=== PATIENT | female | born 2000 | race Caucasian/White ===

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

== ENCOUNTER 2020-10-25 17:17 | Inpatient (IN) | payer BC ==
[2020-10-25] MEDS ORDERED: Ondansetron 4 MG/2 ML SDV IVPUSH PRN ×2 (17:48→20:53)
--- NOTE | 2020-10-25 18:31 | PCM.LDHP ---
L&D History of Present Illness - General Date of Service: 10/25/20 Admit Problem/Dx: Patient Status Order with Admit Dx/Problem 10/25/20 17:20 Patient Status [ADT] Routine Admission Diagnosis/Problem Admission Diagnosis/Problem 10/25/20 18:24 presenting to L&D with reports of regular uterine contractions starting at 0700 and continuing throughout the day, currently 2-3 minutes apart; SVE 2cm /90%/-2, soft, posterior per nurse report; 39 4/7 weeks (TATI: 10/28/20) by 1st trimester ultrasound; A+, rubella immune, GBS negative Source of Information: Patient History Limitations: Reports: No Limitations - Related Data Allergies/Adverse Reactions: Allergies Allergy/AdvReac Type Severity Reaction Status Date / Time No Known Allergies Allergy Verified 07/07/18 17:51 Home Medications: Home Meds Pnv No.95/Ferrous Fum/Folic AC [ Vitamins Tablet] 1 PO DAILY 10/25/20 [History] Past Medical History - Past Health History Medical/Surgical History: Denies 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: - Infectious Disease History Infectious Disease History: Reports: None Social & Family History - Family History Family Medical History: No Pertinent Family History - Tobacco Use Tobacco Use Status *Q: Former Tobacco User Used Tobacco, but Quit: Yes Month/Year Tobacco Last Used: 12/19 - Caffeine Use Caffeine Use: Reports: Coffee, Soda - Recreational Drug Use Recreational Drug Use: No H&P Review of Systems - Review of Systems: Review Of Systems: See Below General: Reports: No Symptoms HEENT: Reports: No Symptoms Pulmonary: Reports: No Symptoms Cardiovascular: Reports: No Symptoms Gastrointestinal: Reports: No Symptoms Genitourinary: Reports: No Symptoms Musculoskeletal: Reports: No Symptoms Skin: Reports: No Symptoms Psychiatric: Reports: No Symptoms Neurological: Reports: No Symptoms Hematologic/Lymphatic: Reports: No Symptoms Immunologic: Reports: No Symptoms L&D Exam - Exam Exam: See Below - Vital Signs Weight: 205 lb - OB Specific Contraction Intensity: Moderate Movement: Active Heart Tones: Present Heart Rate (FHR) Variability: Moderate (6-25 bmp) Presentation: Vertex - Mane Score Mane Score Cervix Position: Posterior Mane Score Consistency: Soft Mane Score Effacement: >80% Mane Score Dilation: 1-2 cm Mane Score Infant's Station: -2 Mane Score Total: 7 - Exam General: Alert, Oriented, Cooperative Lungs: Normal Respiratory Effort Cardiovascular: Regular Rate, Regular Rhythm GI/Abdominal Exam: Soft, Non-Tender Rectal Exam: Deferred Genitourinary: Deferred Back Exam: Normal Inspection, Full Range of Motion Extremities: Normal Inspection, Normal Range of Motion, Non-Tender, Normal Capillary Refill Skin: Warm, Dry, Intact Neurological: Strength Equal Bilateral, Normal Gait, Normal Speech, Normal Tone, Sensation Intact Psychiatric: Alert, Normal Affect, Normal Mood - Problem List (1) Supervision of normal IUP (intrauterine ) in primigravida SNOMED Code(s): 83633204, 172373025, 314072306, 140952057 ICD Code: Z34.00 - ENCNTR FOR SUPRVSN OF NORMAL FIRST , UNSP TRIMESTER Status: Acute Priority: High Current Visit: Yes Qualifiers: Trimester: third trimester Qualified Code(s): Z34.03 - Encounter for supervision of normal first , third trimester Problem List Initiated/Reviewed/Updated: Yes Orders Last 24hrs: Active Orders 24 hr Category Date Time Status Patient Status [ADT] Routine ADT 10/25/20 17:20 Active Non Stress Test [RC] PER UNIT ROUTINE Care 10/25/20 17:20 Active Up ad Olga [RC] ASDIRECTED Care 10/25/20 17:48 Active Vaginal Exam [RC] Click to Edit Care 10/25/20 17:48 Active Vital Signs [RC] PER UNIT ROUTINE Care 10/25/20 17:48 Active CORONAVIRUS COVID-19 KACIE [MOLEC] Stat Lab 10/25/20 18:12 Ordered UA W/O MICROSCOPIC [URIN] Urgent Lab 10/25/20 17:48 Ordered Ondansetron [Zofran] Med 10/25/20 17:48 Active 4 mg IVPUSH Q4H PRN Resuscitation Status Routine Resus Stat 10/25/20 17:48 Ordered Medication Orders Ondansetron HCl (Zofran) 4 mg IVPUSH Q4H PRN PRN Reason: Nausea/Vomiting Assessment/Plan Comment:: Admit A: presenting to L&D with reports of regular uterine contractions starting at 0700 and continuing throughout the day, currently 2-3 minutes apart; SVE 2cm/90%/-2, soft, posterior per nurse report; 39 4/7 weeks (TATI: 10/28/20) by 1st trimester ultrasound; A+, rubella immune, GBS negative P: Anticipate ; epidural PRN; Dr. Davis updated
[2020-10-25] MEDS ORDERED: Water For Irrigation,Sterile 1,000 ML Container IRR PRN (20:50)
[2020-10-25] MEDS ORDERED: Misoprostol 200 MCG Tab PO PRN (20:50)
[2020-10-25] MEDS ORDERED: Methylergonovine 0.2 MG/1 ML Amp IM PRN (20:50)
[2020-10-25] MEDS ORDERED: Tranexamic Acid 1,000 MG in Sodium Chloride 0.9% 100 ML IV PRN (20:50)
[2020-10-25] MEDS ORDERED: Carboprost Tromethamine 250 MCG/1 ML Amp IM PRN (20:50)
[2020-10-25] MEDS ORDERED: Butorphanol 1 MG/ML SDV IVPUSH PRN (20:50)
[2020-10-25] MEDS: Lactated Ringers 1,000 ML IV SCH ×2 (20:50→21:51)
[2020-10-25] MEDS ORDERED: Nalbuphine 10 MG/1 ML Vial IVPUSH PRN (20:50)
[2020-10-25] MEDS ORDERED: Lidocaine 1% 50 ML MDV INJECT PRN (20:50)
[2020-10-25] MEDS ORDERED: Oxytocin/0.9 % Sodium Chloride 30 UNIT/500 ML BAG IV SCH (21:00)
--- NOTE | 2020-10-25 21:07 | PCM.PREANE ---
Preanesthetic Assessment - Procedure Proposed Procedure: Continuous Labor Epidural - Anesthesia/Transfusion/Family Hx Anesthesia History: Prior Anesthesia Without Reaction (Patient states she had "anesthesia for dental exam") Family History of Anesthesia Reaction: No Transfusion History: No Prior Transfusion(s) - Review of Systems General: No Symptoms Pulmonary: No Symptoms Cardiovascular: No Symptoms Gastrointestinal: No Symptoms Neurological: No Symptoms Other: Reports: None - Physical Assessment Height: 5 ft 9 in Weight: 92.986 kg ASA Class: 2 Mental Status: Alert & Oriented x3 Airway Class: Mallampati = 2 Dentition: Reports: Normal Dentition Thyro-Mental Finger Breadths: 3 Mouth Opening Finger Breadths: 3 ROM/Head Extension: Full Lungs: Clear to Auscultation, Normal Respiratory Effort Cardiovascular: Regular Rate, Regular Rhythm - Lab Values: Laboratory Last Values WBC 11.28 K/uL (4.0-11.0) H 10/25/20 18:45 RBC 4.02 M/uL (4.30-5.90) L 10/25/20 18:45 Hgb 12.2 g/dL (12.0-16.0) 10/25/20 18:45 Hct 35.8 % (36.0-46.0) L 10/25/20 18:45 MCV 89.1 fL (80.0-98.0) 10/25/20 18:45 MCH 30.3 pg (27.0-32.0) 10/25/20 18:45 MCHC 34.1 g/dL (31.0-37.0) 10/25/20 18:45 RDW Std Deviation 44.3 fl (28.0-62.0) 10/25/20 18:45 RDW Coeff of Jose Alfredo 14 % (11.0-15.0) 10/25/20 18:45 Plt Count 177 K/uL (150-400) 10/25/20 18:45 MPV 11.80 fL (7.40-12.00) 10/25/20 18:45 Nucleated RBC % 0.0 /100WBC 10/25/20 18:45 Nucleated RBCs # 0 K/uL 10/25/20 18:45 SARS-CoV-2 RNA (KACIE) NEGATIVE (NEGATIVE) 10/25/20 18:45 - Allergies Allergies/Adverse Reactions: Allergies Allergy/AdvReac Type Severity Reaction Status Date / Time No Known Allergies Allergy Verified 07/07/18 17:51 - Anesthesia Plan Free Text/Narrative:: Continuous Labor Epidural - Acknowledgements Anesthesia Type Planned: Epidural Pt an Appropriate Candidate for the Planned Anesthesia: Yes Alternatives and Risks of Anesthesia Discussed w Pt/Guardian: Yes Pt/Guardian Understands and Agrees with Anesthesia Plan: Yes PreAnesthesia Questionnaire - Past Health History Medical/Surgical History: Denies Medical/Surgical History HEENT History: Reports: None Cardiovascular History: Reports: None Respiratory History: Reports: None Gastrointestinal History: Reports: None Genitourinary History: Reports: None 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 LMP (Approximate): Musculoskeletal History: Reports: None Neurological History: Reports: None Psychiatric History: Reports: None Endocrine/Metabolic History: Reports: None Hematologic History: Reports: None Immunologic History: Reports: None Oncologic (Cancer) History: Reports: None Dermatologic History: Reports: None - Infectious Disease History Infectious Disease History: Reports: None - SUBSTANCE USE Tobacco Use Status *Q: Former Tobacco User Tobacco Use Within Last Twelve Months: Cigarettes (Quit December 2019) Recreational Drug Use History: No - HOME MEDS Home Medications: Home Meds Pnv No.95/Ferrous Fum/Folic AC [ Vitamins Tablet] 1 PO DAILY 10/25/20 [History] - CURRENT (IN HOUSE) MEDS Current Meds: Current Medications Butorphanol Tartrate (Stadol) 1 mg IVPUSH Q1H PRN PRN Reason: Pain Carboprost Tromethamine (Hemabate Ds) 250 mcg IM ASDIRECTED PRN PRN Reason: Post Hemorrhage Lactated Ringer's (Ringers, Lactated) 1,000 mls @ 150 mls/hr IV ASDIRECTED POLLO Oxytocin/Sodium Chloride (Oxytocin 30 Unit/500 Ml-Ns) 30 unit in 500 mls @ 999 mls/hr IV TITRATE POLLO Tranexamic Acid 1,000 mg/ (Sodium Chloride) 110 mls @ 660 mls/hr IV ONETIME PRN PRN Reason: Bleeding Lidocaine HCl (Xylocaine 1%) 50 ml INJECT ONETIME PRN PRN Reason: Laceration repair Methylergonovine Maleate (Methergine) 0.2 mg IM ASDIRECTED PRN PRN Reason: Post Hemorrhage Misoprostol (Cytotec) 200 mcg PO ONETIME PRN PRN Reason: Post Hemorrhage Nalbuphine HCl (Nubain) 10 mg IVPUSH Q1H PRN PRN Reason: Pain (severe 7-10) Ondansetron HCl (Zofran) 4 mg IVPUSH Q6H PRN PRN Reason: Nausea/Vomiting Sterile Water (Sterile Water For Irrigation) 1,000 ml IRR ASDIRECTED PRN PRN Reason: delivery Discontinued Medications Ondansetron HCl (Zofran) 4 mg IVPUSH Q4H PRN PRN Reason: Nausea/Vomiting
[2020-10-25] MEDS ORDERED: Ropivacaine HCl/PF 100 ML ONE (21:10)
[2020-10-25] MEDS ORDERED: fentaNYL 100 MCG/2 ML SDV ONE (21:10)
[2020-10-26] MEDS: Lactated Ringers 1,000 ML IV SCH (01:20)
[2020-10-26] MEDS ORDERED: Terbutaline 1 MG/ML SDV SUBCUT PRN (02:13)
[2020-10-26] MEDS ORDERED: Oxytocin/0.9 % Sodium Chloride 30 UNIT/500 ML BAG IV SCH (02:15)
[2020-10-26] MEDS ORDERED: fentaNYL 100 MCG/2 ML SDV ONE (03:28)
[2020-10-26] MEDS ORDERED: Ropivacaine HCl/PF 100 ML ONE (03:29)
[2020-10-26] MEDS ORDERED: Acetaminophen 500 MG Tab PO PRN (05:23)
[2020-10-26] MEDS ORDERED: Ibuprofen 400 MG Tab PO PRN (05:23)
[2020-10-26] MEDS ORDERED: Benzocaine/Menthol 20%-0.5% Spray 78 GM Cannister TOP PRN (05:23)
[2020-10-26] MEDS ORDERED: Bisacodyl 10 MG Supp RECTAL PRN (05:23)
[2020-10-26] MEDS ORDERED: oxyCODONE 5 MG Tab PO PRN (05:23)
[2020-10-26] MEDS ORDERED: Witch Hazel Medicated Pads 40/Jar TOP PRN (05:23)
--- NOTE | 2020-10-26 05:33 | PCM.DEL ---
L & D Note - General Info Date of Service: 10/26/20 Mother's Due Date: 10/28/20 - Delivery Note Labor: Spontaneous Delivery Outcome: Livebirth Infant Delivery Method: Spontaneous Vaginal Delivery-Single Presentation: Vertex Nuchal Cord: None Anesthesia Type: Epidural Amniotic Fluid Description: Meconium Stained Episiotomy Type: None Laceration: Labial Suture type: Vicryl Suture size: 3-0 Placenta: Intact, Spontaneous Cord: 3 Vessels Estimated Blood Loss: 400 Score 1 min: 8 Score 5 min: 9 Second Stage Interventions: Reports: Encouragement Given, Pushing Effectively, Pushing, Pulls Own Legs Back Delivery Comments (Free Text/Narrative):: viable male; epidural for pain relief; 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; head delivered with good pushing, shoulders and body followed easily after; baby immediately to mom's abdomen for assessment; APGARs 8/9; cord doubly clamped, cut by FOB after cessation of pulsing; baby to warmer for further assessment; placenta delivered grossly intact, james, 3VC; EBL 400 mL; pitocin to IVF; right labial laceration repaired with 3-0 vicryl; well-approximated, hemostatic; mom and baby left in stable condition with nurse at bedside for assessment - General Info Date of Service: 10/26/20 Admission Dx/Problem (Free Text): Patient Status Order with Admit Dx/Problem 10/25/20 17:20 Patient Status [ADT] Routine Admission Diagnosis/Problem Admission Diagnosis/Problem 10/25/20 18:24 presenting to L&D with reports of regular uterine contractions starting at 0700 and continuing throughout the day, currently 2-3 minutes apart; SVE 2cm/90%/-2, soft, posterior per nurse report; 39 4/7 weeks (TATI: 10/28/20) by 1st trimester ultrasound; A+, rubella immune, GBS negative Functional Status: Reports: Pain Controlled - Review of Systems General: Reports: No Symptoms HEENT: Reports: No Symptoms Pulmonary: Reports: No Symptoms Cardiovascular: Reports: No Symptoms Gastrointestinal: Reports: No Symptoms Genitourinary: Reports: No Symptoms Musculoskeletal: Reports: No Symptoms Skin: Reports: No Symptoms Neurological: Reports: No Symptoms Psychiatric: Reports: No Symptoms - Patient Data Weight - Most Recent: 205 lb Lab Results Last 24 Hours: Laboratory Results - last 24 hr 10/25/20 10/25/20 Range/Units 18:45 18:45 WBC 11.28 H (4.0-11.0) K/uL RBC 4.02 L (4.30-5.90) M/uL Hgb 12.2 (12.0-16.0) g/dL Hct 35.8 L (36.0-46.0) % MCV 89.1 (80.0-98.0) fL MCH 30.3 (27.0-32.0) pg MCHC 34.1 (31.0-37.0) g/dL RDW Std Deviation 44.3 (28.0-62.0) fl RDW Coeff of Jose Alfredo 14 (11.0-15.0) % Plt Count 177 (150-400) K/uL MPV 11.80 (7.40-12.00) fL Nucleated RBC % 0.0 /100WBC Nucleated RBCs # 0 K/uL SARS-CoV-2 RNA (KACIE) NEGATIVE (NEGATIVE) Med Orders - Current: Current Medications Discontinued Medications Butorphanol Tartrate (Stadol) 1 mg IVPUSH Q1H PRN PRN Reason: Pain Carboprost Tromethamine (Hemabate Ds) 250 mcg IM ASDIRECTED PRN PRN Reason: Post Hemorrhage Fentanyl (Sublimaze) Confirm Administered Dose 200 mcg .ROUTE .STK-MED ONE Stop: 10/25/20 21:11 Fentanyl (Sublimaze) Confirm Administered Dose 200 mcg .ROUTE .STK-MED ONE Stop: 10/26/20 03:29 Lactated Ringer's (Ringers, Lactated) 1,000 mls @ 150 mls/hr IV ASDIRECTED [facility] Last Admin: 10/26/20 01:20 Dose: 150 mls/hr Documented by: Oxytocin/Sodium Chloride (Oxytocin 30 Unit/500 Ml-Ns) 30 unit in 500 mls @ 999 mls/hr IV TITRATE [facility] Last Admin: 10/26/20 04:48 Dose: 999 mls/hr Documented by: Tranexamic Acid 1,000 mg/ (Sodium Chloride) 110 mls @ 660 mls/hr IV ONETIME PRN PRN Reason: Bleeding Ropivacaine (Naropin 0.2%) Confirm Administered Dose 100 mls @ as directed .ROUTE .[employer] ONE Stop: 10/25/20 21:11 Oxytocin/Sodium Chloride (Oxytocin 30 Unit/500 Ml-Ns) 30 unit in 500 mls @ 2 mls/hr IV TITRATE POLLO; Protocol Ropivacaine (Naropin 0.2%) Confirm Administered Dose 100 mls @ as directed .ROUTE .[employer] ONE Stop: 10/26/20 03:30 Lidocaine HCl (Xylocaine 1%) 50 ml INJECT ONETIME PRN PRN Reason: Laceration repair Methylergonovine Maleate (Methergine) 0.2 mg IM ASDIRECTED PRN PRN Reason: Post Hemorrhage Misoprostol (Cytotec) 200 mcg PO ONETIME PRN PRN Reason: Post Hemorrhage Nalbuphine HCl (Nubain) 10 mg IVPUSH Q1H PRN PRN Reason: Pain (severe 7-10) Ondansetron HCl (Zofran) 4 mg IVPUSH Q4H PRN PRN Reason: Nausea/Vomiting Ondansetron HCl (Zofran) 4 mg IVPUSH Q6H PRN PRN Reason: Nausea/Vomiting Last Admin: 10/25/20 21:04 Dose: 4 mg Documented by: Sterile Water (Sterile Water For Irrigation) 1,000 ml IRR ASDIRECTED PRN PRN Reason: delivery Terbutaline Sulfate (Brethine) 0.25 mg SUBCUT ASDIRECTED PRN PRN Reason: Tacysystole - Exam General: Alert, Oriented, Cooperative, No Acute Distress Lungs: Normal Respiratory Effort Cardiovascular: Regular Rate, Regular Rhythm GI/Abdominal Exam: Soft, Non-Tender (Female) Exam: Normal External Exam Back Exam: Normal Inspection Extremities: Normal Inspection, No Pedal Edema, Normal Capillary Refill Skin: Warm, Dry, Intact Neurological: No New Focal Deficit, Normal Speech, Normal Tone Psy/Mental Status: Alert, Normal Affect, Normal Mood - Problem List & Annotations (1) Supervision of normal IUP (intrauterine ) in primigravida SNOMED Code(s): 15107520, 746371113, 090814316, 562890174 Code(s): Z34.00 - ENCNTR FOR SUPRVSN OF NORMAL FIRST , UNSP TRIMESTER Status: Acute Priority: High Current Visit: Yes Qualifiers: Trimester: third trimester Qualified Code(s): Z34.03 - Encounter for supervision of normal first , third trimester (2) (spontaneous vaginal delivery) SNOMED Code(s): 743410174 Code(s): O80 - ENCOUNTER FOR FULL-TERM UNCOMPLICATED DELIVERY Status: Acute Priority: High Current Visit: Yes - Problem List Review Problem List Initiated/Reviewed/Updated: Yes - My Orders Last 24 Hours: My Active Orders 10/25/20 17:48 UA W/O MICROSCOPIC [URIN] Urgent 10/25/20 18:45 RPR (SYPHILIS SERO) W/ RFLX [REF] Stat 10/26/20 05:23 Patient Status [ADT] Routine May Shower [RC] ASDIRECTED Up ad Olga [RC] ASDIRECTED Vital Signs [RC] PER UNIT ROUTINE Acetaminophen [Tylenol Extra Strength] 1,000 mg PO Q4H PRN Acetaminophen [Tylenol Extra Strength] 500 mg PO Q4H PRN Benzocaine/Menthol [Dermoplast Pain Relief 20%-0.5% [place]] 78 gm TOP ASDIRECTED PRN Docusate Sodium [Colace] 100 mg PO BID PRN Ibuprofen [Motrin] 400 mg PO Q4H PRN Ibuprofen [Motrin] 800 mg PO Q6H PRN Lanolin [Lansinoh HPA] See Dose Instructions TOP ASDIRECTED PRN bisacodyL [Dulcolax] 10 mg RECTAL ONETIME PRN oxyCODONE 5 mg PO Q2H PRN witch Carrie [Tucks] 1 pad TOP ASDIRECTED PRN Assess Lochia [WOMSER] Per Unit Routine Assess Uterine Involution [WOMSER] Per Unit Routine Peripheral IV Discontinue [OM.PC] Routine Resuscitation Status Routine 10/26/20 Breakfast Regular Diet [DIET] 10/27/20 05:11 HEMOGLOBIN/HEMATOCRIT,HH [HEME] Timed - Plan Plan:: Admit A: presenting to L&D with reports of regular uterine contractions starting at 0700 and continuing throughout the day, currently 2-3 minutes apart; SVE 2cm/90%/-2, soft, posterior per nurse report; 39 4/7 weeks (TATI: 10/28/20) by 1st trimester ultrasound; A+, rubella immune, GBS negative P: Anticipate ; epidural PRN; Dr. Davis updated Labor A: viable male; epidural for pain relief; thick meconium; baby immediately to mom's abdomen for assessment; APGARs 8/9; cord doubly clamped, cut by FOB after cessation of pulsing; baby to warmer for further assessment; placenta delivered grossly intact, james, 3VC; EBL 400 mL; pitocin to IVF; right labial laceration repaired with 3-0 vicryl; well-approximated, hemostatic; mom and baby left in stable condition with nurse at bedside for assessment P: Routine plan of care; Dr. Davis updated.
[2020-10-26] MEDS: Acetaminophen 500 MG Tab PO PRN ×2 (05:43→13:46)
[2020-10-26] MEDS: Ibuprofen 800 MG Tab PO PRN ×2 (05:45→13:43)
[2020-10-26] MEDS: Docusate Sodium 100 MG Cap PO PRN ×2 (05:46→21:32)
[2020-10-26] MEDS: Lanolin 100% Cream 7 GM Tube TOP PRN ×2 (05:47→20:14)
--- NOTE | 2020-10-26 09:12 | PCM48HPAN ---
Post Anesthesia Note - EVALUATION WITHIN 48HRS OF ANESTHETIC Vital Signs in Normal Range: Yes Patient Participated in Evaluation: Yes Respiratory Function Stable: Yes Airway Patent: Yes Cardiovascular Function Stable: Yes Hydration Status Stable: Yes Pain Control Satisfactory: Yes Nausea and Vomiting Control Satisfactory: Yes Mental Status Recovered: Yes
[2020-10-26] MEDS ORDERED: Methylergonovine 0.2 MG/1 ML Amp IM PRN (13:24)
[2020-10-27] MEDS: Acetaminophen 500 MG Tab PO PRN (02:25)
--- NOTE | 2020-10-27 06:41 | PCM.DCSUM1 ---
Discharge Summary - Hospital Course Free Text/Narrative:: Tabitha is a 20 yo PPD1 S/P of NBM at 39+ weeks gestation ( TATI 10/28/2020) . A pos, Ab screen neg, RI, GBS neg. Pertinent medical history includes: anemia. Increased bleeding noted, methergine 0.2 mg IM given once 1 day ago. Patient has no complaints or concerns at this time. Patient is EBFing fairly well, expresses need for support today. Resting comfortably in bed with in bassinet at bedside. Patient reports she is eating, hydrating, voiding, and ambulating independently. Patient denies any problems or concerns at this time except fatigue and moderate intermittent uterine cramping alleviated fairly well with ibuprofen and tylenol. Patient reports small vaginal bleeding with no clots. Expresses desire to be discharged home today. Diagnosis: Stroke: No - Discharge Data Discharge Date: 10/27/20 Discharge Disposition: Home, Self-Care 01 Condition: Good - Referral to Home Health Primary Care Physician: PCP None - Discharge Diagnosis/Problem(s) (1) (spontaneous vaginal delivery) SNOMED Code(s): 694782885 ICD Code: O80 - ENCOUNTER FOR FULL-TERM UNCOMPLICATED DELIVERY Status: Acute Priority: High Current Visit: Yes (2) Lactating mother SNOMED Code(s): 853631318, 547681069 ICD Code: Z39.1 - ENCOUNTER FOR CARE AND EXAMINATION OF LACTATING MOTHER Status: Acute Priority: High Current Visit: Yes - Patient Instructions Diet: Usual Diet as Tolerated, Regular Diet as Tolerated, Drink 8-10+ Glasses/Day Activity: As Tolerated, No Strenuous Activities, Rest and Relax Today Driving: May Drive Today Showering/Bathing: May Shower Showering/Bathing, Other: May sitz bath as needed for perineal comfort Notify Provider of: Fever, Increased Pain, Swelling and Redness, Drainage, Nausea and/or Vomiting - Discharge Plan *PRESCRIPTION DRUG MONITORING PROGRAM REVIEWED*: No *COPY OF PRESCRIPTION DRUG MONITORING REPORT IN PATIENT ALICIA: No Prescriptions/Med Rec: Ibuprofen [Motrin] 800 mg PO Q8H PRN #90 tablet PRN Reason: Pain Home Medications: Home Meds Pnv No.95/Ferrous Fum/Folic AC [ Vitamins Tablet] 1 PO DAILY 10/25/20 [History] Ibuprofen [Motrin] 800 mg PO Q8H PRN #90 tablet 10/27/20 [Rx] Oxygen Therapy Mode: Room Air Referrals: [facility] [Outside] Georgina Rodas, YANIQUEM, [employer]ING [employer]PERVISOR [Mid-] - 12/10/20 2:00 pm (Your 6 week post appointment is on 12/10/20 at 2:00 pm with Georgina. Masks are required.) - Discharge Summary/Plan Comment DC Time >30 min.: Yes Discharge Summary/Plan Comment: May be discharged home today. Continue 150 mg iron PO twice daily for anemia. Colace 100 mg PO twice daily as needed for constipation. Warning S/Ss, when to call for help discussed. RTO in 6 weeks for visit, or sooner if problems or concerns arise. - General Info Date of Service: 10/27/20 Admission Dx/Problem (Free Text: Patient Status Order with Admit Dx/Problem 10/25/20 17:20 Patient Status [ADT] Routine Admission Diagnosis/Problem Admission Diagnosis/Problem 10/25/20 18:24 presenting to L&D with reports of regular uterine contractions starting at 0700 and continuing throughout the day, currently 2-3 minutes apart; SVE 2cm/90%/-2, soft, posterior per nurse report; 39 4/7 weeks (TATI: 10/28/20) by 1st trimester ultrasound; A+, rubella immune, GBS negative Functional Status: Reports: Pain Controlled, Tolerating Diet, Ambulating, Urinating - Review of Systems General: Reports: No Symptoms HEENT: Reports: No Symptoms Pulmonary: Reports: No Symptoms Cardiovascular: Reports: No Symptoms Gastrointestinal: Reports: No Symptoms Genitourinary: Reports: No Symptoms Musculoskeletal: Reports: No Symptoms Skin: Reports: No Symptoms Neurological: Reports: No Symptoms Psychiatric: Reports: No Symptoms - Patient Data Vitals - Most Recent: Last Vital Signs Temp 98.5 F 10/27/20 04:00 Pulse 94 10/27/20 04:00 Resp 18 10/27/20 04:00 BP 114/82 10/27/20 04:00 Pulse Ox 97 10/27/20 04:00 Weight - Most Recent: 205 lb Lab Results - Last 24 hrs: Laboratory Results - last 24 hr 10/25/20 10/26/20 Range/Units 18:45 16:38 Hgb 8.8 L (12.0-16.0) g/dL Hct 26.1 L (36.0-46.0) % Blood Type A POSITIVE Antibody Screen NEGATIVE Med Orders - Current: Current Medications Acetaminophen (Tylenol Extra Strength) 500 mg PO Q4H PRN PRN Reason: Pain Acetaminophen (Tylenol Extra Strength) 1,000 mg PO Q4H PRN PRN Reason: Pain Last Admin: 10/27/20 02:25 Dose: 1,000 mg Documented by: Benzocaine/Menthol (Dermoplast Pain Relief 20%-0.5% [place]) 78 gm TOP ASDIRECTED PRN PRN Reason: Perineal Comfort Measure Last Admin: 10/26/20 05:48 Dose: 1 canister Documented by: Bisacodyl (Dulcolax) 10 mg RECTAL ONETIME PRN PRN Reason: Constipation Docusate Sodium (Colace) 100 mg PO BID PRN PRN Reason: Constipation Last Admin: 10/26/20 21:32 Dose: 100 mg Documented by: Emollient Ointment (Lansinoh Hpa) 0 gm TOP ASDIRECTED PRN PRN Reason: Sore Nipples Last Admin: 10/26/20 20:14 Dose: 7 gm Documented by: Ibuprofen (Motrin) 400 mg PO Q4H PRN PRN Reason: Pain Ibuprofen (Motrin) 800 mg PO Q6H PRN PRN Reason: Pain Last Admin: 10/26/20 13:43 Dose: 800 mg Documented by: Methylergonovine Maleate (Methergine) 0.2 mg IM Q4H PRN PRN Reason: Bleeding Last Admin: 10/26/20 13:43 Dose: 0.2 mg Documented by: Oxycodone HCl (Oxycodone) 5 mg PO Q2H PRN PRN Reason: Pain Witch Margo (Tucks) 1 pad TOP ASDIRECTED PRN PRN Reason: comfort care Last Admin: 10/26/20 05:48 Dose: 1 canister Documented by: Discontinued Medications Butorphanol Tartrate (Stadol) 1 mg IVPUSH Q1H PRN PRN Reason: Pain Carboprost Tromethamine (Hemabate Ds) 250 mcg IM ASDIRECTED PRN PRN Reason: Post Hemorrhage Fentanyl (Sublimaze) Confirm Administered Dose 200 mcg .ROUTE .[facility] ONE Stop: 10/25/20 21:11 Last Admin: 10/26/20 21:47 Dose: Not Given Documented by: Fentanyl (Sublimaze) Confirm Administered Dose [address] mcg .[address]TE .[facility] ONE Stop: 10/26/20 03:29 Last Admin: 10/26/20 21:47 Dose: Not Given Documented by: Lactated Ringer's (Ringers, Lactated) 1,000 mls @ 150 mls/hr IV ASDIRECTED [facility] Last Admin: 10/26/20 01:20 Dose: 150 mls/hr Documented by: Oxytocin/Sodium Chloride (Oxytocin 30 Unit/500 Ml-Ns) 30 unit in 500 mls @ 999 mls/hr IV TITRATE POLLO Last Admin: 10/26/20 04:48 Dose: 999 mls/hr Documented by: Tranexamic Acid 1,000 mg/ (Sodium Chloride) 110 mls @ 660 mls/hr IV ONETIME PRN PRN Reason: Bleeding Ropivacaine (Naropin 0.2%) Confirm Administered Dose 100 mls @ as directed .ROUTE .[facility] ONE Stop: 10/25/20 21:11 Last Admin: 10/26/20 21:48 Dose: Not Given Documented by: Oxytocin/Sodium Chloride (Oxytocin 30 Unit/500 Ml-Ns) 30 unit in 500 mls @ 2 mls/hr IV TITRATE [facility]; Protocol Ropivacaine (Naropin 0.2%) Confirm Administered Dose 100 mls @ as directed .ROUTE .[facility] ONE Stop: 10/26/20 03:30 Last Admin: 10/26/20 21:48 Dose: Not Given Documented by: Lidocaine HCl (Xylocaine 1%) 50 ml INJECT ONETIME PRN PRN Reason: Laceration repair Methylergonovine Maleate (Methergine) 0.2 mg IM ASDIRECTED PRN PRN Reason: Post Hemorrhage Misoprostol (Cytotec) 200 mcg PO ONETIME PRN PRN Reason: Post Hemorrhage Nalbuphine HCl (Nubain) 10 mg IVPUSH Q1H PRN PRN Reason: Pain (severe 7-10) Ondansetron HCl (Zofran) 4 mg IVPUSH Q4H PRN PRN Reason: Nausea/Vomiting Ondansetron HCl (Zofran) 4 mg IVPUSH Q6H PRN PRN Reason: Nausea/Vomiting Last Admin: 10/25/20 21:04 Dose: 4 mg Documented by: Sterile Water (Sterile Water For Irrigation) 1,000 ml IRR ASDIRECTED PRN PRN Reason: delivery Terbutaline Sulfate (Brethine) 0.25 mg SUBCUT ASDIRECTED PRN PRN Reason: Tacysystole - Exam General: Reports: Alert, Oriented, Cooperative, No Acute Distress HEENT: Reports: Pupils Equal, Mucous Membr. Moist/[place] Neck: Reports: Supple Lungs: Reports: Clear to Auscultation, Normal Respiratory Effort Cardiovascular: Reports: Regular Rate, Regular Rhythm GI/Abdominal Exam: Normal Bowel Sounds, Soft, Non-Tender, No Organomegaly, No Distention (Female) Exam: Normal External Exam, Enlarged Uterus ( uterus, firm U-1), Vaginal Bleeding (Scant to small rubra lochia, no clots.) Rectal (Female) Exam: Normal Exam, Deferred Back Exam: Reports: Normal Inspection, Full Range of Motion Extremities: Normal Inspection, Normal Range of Motion, Non-Tender, No Pedal Edema, Normal Capillary Refill Skin: Reports: Warm, Dry, Intact Wound/Incisions: Reports: No Drainage Neurological: Reports: No New Focal Deficit Psy/Mental Status: Reports: Alert, Normal Affect, Normal Mood
[2020-10-27] MEDS ORDERED: Iron Polysaccharides Complex 150 MG Cap PO SCH (09:00)
[2020-10-27] MEDS: Ibuprofen 800 MG Tab PO PRN (12:03)
[2020-10-27] MEDS: Lanolin 100% Cream 7 GM Tube TOP PRN (12:03)
== END 2020-10-27 17:45 | disposition home or self-care (01) | DRG 560 ==
LOC: MW.OB 17:17 → MW.OBCHECK 17:17 → MW.OB 20:51 → MW.OBCHECK 20:51 → OBSVTOIN 10-26 04:48 → MW.OB 10-26 16:59
PROVIDERS: ADMIT Obstetrics & Gynecology; ATTEND Obstetrics & Gynecology
PROC: 10E0XZZ Delivery of Products of Conception, External Approach (ICD-10-PCS; principal; 2020-10-26)
PROC: 3E0R3BZ Introduction of Anesthetic Agent into Spinal Canal, Percutaneous Approach (ICD-10-PCS; 2020-10-26)
PROC: 0HQ9XZZ Repair Perineum Skin, External Approach (ICD-10-PCS; 2020-10-26)
DX: O99.02 Anemia complicating childbirth (principal); D64.9 Anemia, unspecified; Z3A.39 39 weeks gestation of pregnancy; Z37.0 Single live birth; O77.0 Labor and delivery complicated by meconium in amniotic fluid; O70.0 First degree perineal laceration during delivery; Z87.891 Personal history of nicotine dependence; Z20.822 Contact with and (suspected) exposure to COVID-19
CPT/HCPCS: 01967; 36415; 51702; 59025; 59409; 85014; 85018; 85027; 86592; 86850; 86900; 86901; A9270-GY; J2210; J2405; J2590; J2795; J3010; J7120; U0002

== ENCOUNTER 2021-04-03 11:45 | Emergency (ER) | payer BC ==
[2021-04-03] MEDS ORDERED: Cefdinir 300 MG Cap PO ONE (13:18)
[2021-04-03] MEDS ORDERED: Acetaminophen/HYDROcodone 325-5 MG Tab PO ONE (13:19)
--- NOTE | 2021-04-03 13:40 | EDM.PDOC ---
ED HPI GENERAL MEDICAL PROBLEM - General Chief Complaint: Skin Complaint Stated Complaint: BREAST INFECTION Time Seen by Provider: 04/03/21 13:01 - History of Present Illness INITIAL COMMENTS - FREE TEXT/NARRATIVE: HISTORY AND PHYSICAL: History of present illness: This is a 20-year-old female who presents ER today secondary to pain and discomfort to both breasts that started approximately 1 to 2 days ago. Patient reports that she did see her clinician a couple days ago and was given a prescription for a yeast infection. Patient reports that prior to seeing her clinician she noticed a small pustule that she popped on her left nipple. She was assessed for this and was given a cream and ointment to place on her nipple. Patient reports that she exclusively pumps and does not do any direct breast- feeding since her baby was born secondary to poor latching. Patient denies any recent fevers, shakes, chills, nausea, vomiting, diarrhea, dysuria, frequency, urgency, chest pain, shortness of breath. Patient reports a significant amount of discomfort to her both breasts and some swelling to both nipples and areola. Review of systems: As per history of present illness and below otherwise all systems reviewed and negative. Past medical history: As per history of present illness and as reviewed below otherwise noncontributory. Surgical history: As per history of present illness and as reviewed below otherwise noncontributory. Social history: No reported history of drug abuse. Family history: As per history of present illness and as reviewed below otherwise noncontributory. Physical exam: This patient was seen and evaluated during the 2019 SARS-CoV-2 novel coronavirus pandemic period. Community viral transmission is ongoing at time of this encounter and the emergency department is operating under pandemic response procedures. Constitutional: Patient is oriented to person, place, and time. Appears well- developed and well-nourished. No distress. HEENT: Moist mucous membranes Head: Normocephalic and atraumatic Eyes: Right eye exhibits no discharge. Left eye exhibits no discharge. No scleral icterus Neck: Normal range of motion. No tracheal deviation present. Cardiovascular: Normal rate and regular rhythm. Pulmonary: Effort normal, no respiratory distress. Abdominal: No distention Musculoskeletal: Normal range of motion Neurologic: Alert and oriented to person, place and time. Skin: [place], warm and dry. Psychiatric: Normal mood and affect. Behavior is normal. Judgment and thought content normal. Nursing note and vital signs have been reviewed Bilateral breast tender to palpation with no evidence of abscess or fluctuance identified. Patient has no purulent drainage from both nipples. Both nipples are erythematous and tender to palpation with some swelling and warmth. Patient's right nipple has 3 minuscule pustules identified with no drainage. Diagnostics: [] Therapeutics: [] Assessment and plan: 20-year-old female with likely mastitis bilateral. Patient pumps exclusively and is continue to pump but has a lot of pain and discomfort with pumping at the present time. Patient does not have any fevers at home. Patient's physical exam in the ED is consistent for mild mastitis. Patient will get started on Omnicef here in the ED and will be given a prescription for the same. Patient was given ibuprofen, [place], Omnicef prescription. Patient will be instructed to follow-up with her clinician in 3 days for reevaluation of her mastitis and to return to the ER if she develops any new or concerning symptoms such as fever increasing pain or other concerns. Reassessment at the time of disposition demonstrates that the patient is in no acute distress. The patient has remained stable throughout the entire ED visit and is without objective evidence for acute process requiring urgent intervention or hospitalization. The patient is stable for discharge, counseling is provided as documented above, discussed symptomatic treatment and specific conditions for return. I have spoken with the patient/caregiver and discussed todays findings, in addition to providing specific details for the plan of care. Questions are answered and there is agreement with the plan. Definitive disposition and diagnosis as appropriate pending reevaluation and review of above. left breast Pain Score (Numeric/FACES): 10 - Related Data Allergies Allergy/AdvReac Type Severity Reaction Status Date / Time No Known Allergies Allergy Verified 04/03/21 12:54 Home Meds: Home Meds Pnv No.95/Ferrous Fum/Folic AC [ Vitamins Tablet] 1 tab PO DAILY 10/25/20 [History] Ibuprofen [Motrin] 800 mg PO Q8H PRN #90 tablet 10/27/20 [Rx] Cefdinir 300 mg PO Q12HR #20 capsule 04/03/21 [Rx] Hydrocodone/Acetaminophen [Hydrocodone-Acetamin 5-325 mg] 1 each PO Q6HR PRN #14 tab 04/03/21 [Rx] Ibuprofen 600 mg PO Q6HR PRN #30 tablet 04/03/21 [Rx] Past Medical History - Past Health History Medical/Surgical History: Denies Medical/Surgical History HEENT History: Reports: None Cardiovascular History: Reports: None Respiratory History: Reports: None Gastrointestinal History: Reports: None Genitourinary History: Reports: None 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: Musculoskeletal History: Reports: None Neurological History: Reports: None Psychiatric History: Reports: None Endocrine/Metabolic History: Reports: None Hematologic History: Reports: None Immunologic History: Reports: None Oncologic (Cancer) History: Reports: None Dermatologic History: Reports: None - Infectious Disease History Infectious Disease History: Reports: None - Past Surgical History Other Cardiovascular Surgeries/Procedures: POTS Social & Family History - Family History Family Medical History: No Pertinent Family History - Tobacco Use Tobacco Use Status *Q: Never Tobacco User - Caffeine Use Caffeine Use: Reports: Coffee, Soda - Recreational Drug Use Recreational Drug Use: No ED ROS GENERAL - Review of Systems Review Of Systems: See Below ED EXAM, SKIN/RASH Exam: See Below Course - Vital Signs Last Recorded V/S: Last Vital Signs Temp 99.3 F 04/03/21 12:51 Pulse 110 H 04/03/21 12:51 Resp 16 04/03/21 12:51 BP 123/72 04/03/21 12:51 Pulse Ox 98 04/03/21 12:51 - Orders/Labs/Meds Meds: Medications Discontinued Medications Generic Name Dose Route Start Last Admin Trade Name Freq PRN Reason Stop Dose Admin Hydrocodone Bitart/Acetaminophen 1 tab 04/03/21 13:19 04/03/21 13:23 Acetaminophen/Hydrocodone 325-5 Mg Tab PO 04/03/21 13:20 1 tab ONETIME ONE Administration Cefdinir 300 mg 04/03/21 13:18 Cefdinir 300 Mg Cap PO 04/03/21 13:19 ONETIME ONE Departure - Departure Time of Disposition: 13:40 Disposition: Home, Self-Care 01 Condition: Good Clinical Impression: Mastitis, left, acute, Acute mastitis of right breast - Discharge Information Instructions: Mastitis, and Mastitis Referrals: PCP,None [Primary Care Provider] - Additional Instructions: You were seen in the ER today secondary to pain to your breasts. This is likely secondary to an infection called mastitis. You will get started on antibiotics as well as pain medicines. Please make an appointment see your clinician in the next 3 to 4 days to be reevaluated by them. You will be given a prescription for Omnicef to take twice a day for 10 days. You will be given ibuprofen 600 mg to take every 6 hours as needed for pain. You will also be given a prescription for [place] to take in case you are still having pain despite taking ibuprofen and [id number] acetaminophen. Please return to the ER if you start developing any new or concerning symptoms, persistently high fevers, or increased pain to your breasts. The following information is given to patients seen in the emergency department who are being discharged to home. This information is to outline your options for follow-up care. We provide all patients seen in our emergency department with a follow-up referral. The need for follow-up, as well as the timing and circumstances, are variable depending upon the specifics of your emergency department visit. If you don't have a primary care physician on staff, we will provide you with a referral. We always advise you to contact your personal physician following an emergency department visit to inform them of the circumstance of the visit and for follow-up with them and/or the need for any referrals to a consulting specialist. The emergency department will also refer you to a specialist when appropriate. This referral assures that you have the opportunity for follow-up care with a specialist. All of these measure are taken in an effort to provide you with optimal care, which includes your follow-up. Under all circumstances we always encourage you to contact your private physician who remains a resource for coordinating your care. When calling for follow-up care, please make the office aware that this follow-up is from your recent emergency room visit. If for any reason you are refused follow-up, please contact the [facility] Emergency Department at and asked to speak to the emergency department charge nurse. [facility] - Primary Care [address] [place] [id number] [facility] [address] [place] [address] Sepsis Event Note (ED) - Evaluation Sepsis Screening Result: No Definite Risk - Focused Exam Vital Signs: Vital Signs Temp Pulse Resp BP Pulse Ox 04/03/21 12:51 99.3 F 110 H 16 123/72 98
--- NOTE | 2021-04-05 09:08 | PCM.SN.2 ---
- Free Text/Narrative Note: Patient was seen by prior provider last night. A prescription for [place] was sent to [place] pharmacy but they are closed today because of the holiday. I have canceled that prescription and a new prescription was sent to [facility].
== END 2021-04-03 14:02 | disposition home or self-care (01) ==
LOC: MW.ED 11:45
DX: N61.0 Mastitis without abscess (principal)
CPT/HCPCS: 99283; A9270

== ENCOUNTER 2023-02-20 18:02 | Inpatient (IN) | payer OTHER ==
[2023-02-20] MEDS ORDERED: Oxytocin/0.9 % Sodium Chloride 30 UNIT/500 ML BAG ONE (18:50)
[2023-02-20] MEDS ORDERED: Lidocaine 1% 50 ML MDV ONE (18:50)
[2023-02-20] MEDS ORDERED: Bisacodyl 10 MG Supp RECTAL PRN (19:23)
[2023-02-20] MEDS ORDERED: Ibuprofen 800 MG Tab PO PRN (19:23)
[2023-02-20] MEDS ORDERED: Benzocaine/Menthol 20%-0.5% Spray 78 GM Cannister TOP PRN (19:23)
[2023-02-20] MEDS ORDERED: Lanolin 100% Cream 7 GM Tube TOP PRN (19:23)
[2023-02-20] MEDS ORDERED: Acetaminophen 500 MG Tab PO PRN (19:23)
[2023-02-20] MEDS ORDERED: Witch Hazel Medicated Pads 40/Jar TOP PRN (19:23)
[2023-02-20] MEDS: Ibuprofen 400 MG Tab PO PRN (20:23)
[2023-02-20] MEDS: Docusate Sodium 100 MG Cap PO PRN (20:24)
[2023-02-20] MEDS ORDERED: Misoprostol 200 MCG Tab PO PRN (20:58)
[2023-02-20] MEDS ORDERED: Carboprost Tromethamine 250 MCG/1 mL Vial IM PRN (20:58)
[2023-02-20] MEDS ORDERED: Sodium Chloride 0.9% 2.5 ML Syringe FLUSH PRN (20:58)
[2023-02-20] MEDS ORDERED: Tranexamic Acid 1,000 MG in Sodium Chloride 0.9% 100 ML IV PRN (20:58)
[2023-02-20] MEDS ORDERED: Butorphanol 1 MG/ML SDV IVPUSH PRN (20:58)
[2023-02-20] MEDS ORDERED: Water For Irrigation,Sterile 1,000 ML Container IRR PRN (20:58)
[2023-02-20] MEDS ORDERED: Methylergonovine 0.2 MG/1 ML Amp IM PRN (20:58)
[2023-02-20] MEDS ORDERED: Sodium Chloride 0.9% 20 ML SDV IV PRN (20:58)
[2023-02-20] MEDS ORDERED: Sodium Chloride 0.9% 10 ML Syringe FLUSH PRN (20:58)
[2023-02-20] MEDS ORDERED: Lactated Ringers 1,000 ML IV SCH (21:00)
[2023-02-20] MEDS ORDERED: Oxytocin/0.9 % Sodium Chloride 30 UNIT/500 ML BAG IV SCH (21:00)
[2023-02-20 21:09] LABS: HEMATOCRIT 33.3 % (36.0-46.0); HEMOGLOBIN 11.7 g/dL (12.0-16.0); MEAN CORPUSCULAR HEMOGLOBIN 30.2 pg (27.0-32.0); MEAN CORPUSCULAR HGB CONC 35.1 g/dL (31.0-37.0); MEAN PLATELET VOLUME 11.6 fL (7.40-12.00); RED BLOOD CELL COUNT 3.87 M/uL (4.30-5.90); WHITE BLOOD CELL COUNT,WBC 11.31 K/uL (4.0-11.0)
[2023-02-21] MEDS: Ibuprofen 400 MG Tab PO PRN (02:30)
[2023-02-21] MEDS: Acetaminophen 500 MG Tab PO PRN ×2 (02:30→11:03)
[2023-02-21 06:09] LABS: HEMATOCRIT 30.9 % (36.0-46.0); HEMOGLOBIN 10.4 g/dL (12.0-16.0)
[2023-02-21] MEDS: Docusate Sodium 100 MG Cap PO PRN (11:02)
== END 2023-02-21 22:25 | disposition home or self-care (01) | DRG 807 ==
LOC: MW.OB 18:02 → MW.OBCHECK 18:02 → MW.OB 18:04 → OBSVTOIN 19:04 → MW.OB 02-21 02:08
PROVIDERS: ADMIT Obstetrics & Gynecology Obstetrics; ATTEND Obstetrics & Gynecology Obstetrics
PROC: 10E0XZZ Delivery of Products of Conception, External Approach (ICD-10-PCS; principal; 2023-02-20)
DX: O62.3 Precipitate labor (principal); Z37.0 Single live birth; Z3A.39 39 weeks gestation of pregnancy
CPT/HCPCS: 36415; 59025; 59409; 59414; 84112; 85014; 85018; 85027; 86592; 86850; 86900; 86901; A9270-GY; J2590

== ENCOUNTER 2023-06-22 10:48 | Emergency (ER) | payer OTHER ==
[2023-06-22] MEDS ORDERED: Ketorolac 30 MG/ML SDV IVPUSH STA (11:25)
[2023-06-22] MEDS ORDERED: Sodium Chloride 0.9% 2.5 ML Syringe FLUSH PRN (11:25)
[2023-06-22] MEDS ORDERED: Sodium Chloride 0.9% 10 ML Syringe FLUSH PRN (11:25)
[2023-06-22] MEDS ORDERED: Ondansetron 4 MG/2 ML SDV IVPUSH STA (11:25)
[2023-06-22] MEDS ORDERED: Sodium Chloride 0.9% 1,000 ML IV STA (11:25)
[2023-06-22 11:36] LABS: BASOPHILS ABSOLUTE AUTO 0.1 K/uL (0.0-0.1); BASOPHILS PERCENT AUTO 0.8 % (0.0-1.5); EOSINOPHILS ABSOLUTE AUTO 0.2 K/uL (0.0-0.7); EOSINOPHILS PERCENT AUTO 2.5 % (0.0-7.0); HEMOGLOBIN 12.9 g/dL (12.0-16.0); LYMPHOCYTES ABSOLUTE AUTO 2.9 K/uL (0.6-2.4); MEAN CORPUSCULAR HEMOGLOBIN 28.7 pg (27.0-32.0); MEAN CORPUSCULAR HGB CONC 33.9 g/dL (31.0-37.0); MEAN CORPUSCULAR VOLUME 84.6 fL (80.0-98.0); MONOCYTES ABSOLUTE AUTO 0.7 K/uL (0.0-0.8); MONOCYTES PERCENT AUTO 7.2 % (0.0-15.0); NEUTROPHILS ABSOLUTE AUTO 5.2 K/uL (1.4-5.7); NEUTROPHILS PERCENT AUTO 57.5 % (48.0-80.0); NRBC ABSOLUTE 0 K/uL; PLATELET COUNT,PLT 288 K/uL (150-400); RED BLOOD CELL COUNT 4.49 M/uL (4.30-5.90); WHITE BLOOD CELL COUNT,WBC 8.97 K/uL (4.0-11.0)
[2023-06-22 11:38] LABS: APPEARANCE,URINE CLEAR; BILIRUBIN,URINE NEGATIVE (NEGATIVE); COLOR,URINE YELLOW; GLUCOSE,URINE NEGATIVE (NEGATIVE); KETONES,URINE TRACE mg/dL (NEGATIVE); LEUKOCYTE ESTERASE,URINE NEGATIVE (NEGATIVE); NITRITE,URINE NEGATIVE (NEGATIVE); OCCULT BLOOD,URINE TRACE-INTACT (NEGATIVE); PROTEIN,URINE NEGATIVE (NEGATIVE); UROBILINOGEN,URINE 0.2 EU/dL (<2.0)
[2023-06-22 11:49] LABS: A/G RATIO 1.1 (0.9-1.6); BILIRUBIN TOTAL 0.3 mg/dL (0.2-1.0); CALCIUM 8.9 mg/dL (8.5-10.1); CARBON DIOXIDE,CO2 23.8 mmol/L (21.0-32.0); CREATININE 0.9 mg/dL (0.6-1.0); EST CRCL DRUG DOSING (CG) 93.73 mL/min; POTASSIUM,K 3.6 mmol/L (3.5-5.1); PROTEIN TOTAL,TP 7.7 g/dL (6.4-8.2)
[2023-06-22 11:54] LABS: RBC,URINE 0-3 (0-2/HPF); WBC,URINE 0-2 (0-5/HPF)
[2023-06-22 11:55] LABS: EPITHELIAL CELLS,URINE FEW (NONE-FEW)
[2023-06-22] MEDS ORDERED: Iopamidol 755 MG/ML 500 ML Multipack Bottle IVPUSH STA (12:20)
== END 2023-06-22 14:40 | disposition home or self-care (01) ==
LOC: MW.ED 10:48
DX: N13.2 Hydronephrosis with renal and ureteral calculous obstruction (principal); Z39.1 Encounter for care and examination of lactating mother; Z20.822 Contact with and (suspected) exposure to COVID-19
CPT/HCPCS: 36415; 74177; 80053; 81001; 81025; 83690; 85025; 87635; 96361; 96374; 96375; 99284; J1885; J2405; J3490; J7030; Q9967; U0002